=== PATIENT | female | born 1945 | race Caucasian/White ===

== ENCOUNTER → 2016-04-05 | Outpatient (CLI) | payer BC ==
[~2016-04-05] MED LIST: /ALEN70TA OR; BLOOD PRESSURE MED OR; DOXY100T OR; NICO14DI3 TD; PRED10TA2 OR; PRED20TA OR; SIMV40TA2 OR; TESS100C OR
--- NOTE | 2016-04-05 11:32 | REP ---
Clinical: Pain. Technique: Internal rotation, external rotation, and Y view. Findings: Age related osteopenia and mild arthritic degenerative changes are appreciated including spurring at the acromioclavicular joint with small adjacent periarticular loose body as well as subtle blunted appearance to the glenoid rim. Subacromial space is normal. No further periarticular calcifications are identified. No evidence for acute or healed fracture/dislocation. Impression: Age-related osteopenia and mild arthritic degenerative changes. Signed by Khoi Jennings MD 04/05/2016 11:23 A
== END ==
LOC: M WUC 11:03
PROVIDERS: ATTEND Nurse Practitioner Family
DX: M85.812 Other specified disorders of bone density and structure, left shoulder (principal); M19.012 Primary osteoarthritis, left shoulder

== ENCOUNTER → 2016-09-04 | Outpatient (REF) | payer BC | LOC: M LAB REF 16:29 | PROVIDERS: ATTEND Physician Assistant | DX: N39.0 Urinary tract infection, site not specified (principal) ==

== ENCOUNTER 2016-09-11 09:37 | Inpatient (IN) | payer MEDICARE, BC ==
[~2016-09-11] VITALS: Ht 165.1 cm; Wt 50.2 kg
[2016-09-11] MEDS ORDERED: LISIPOW (09:56)
[2016-09-11] MEDS ORDERED: CIPR250T3 PO (09:56)
[2016-09-11] MEDS ORDERED: PHEN1TAB80 PO (09:56)
[2016-09-11] MEDS ORDERED: ALEN70TA39 (09:56)
[2016-09-11] MEDS ORDERED: ATOR1TAB18 PO (09:56)
[2016-09-11] MEDS ORDERED: ONDANSETRON 4MG/2ML VIAL (J2405) IV ONE (11:45)
[2016-09-11] MEDS ORDERED: KETOROLAC 30 MG/ML VIAL (J1885) IV ONE (11:45)
[2016-09-11 12:08] LABS: BASO % 0.1 % (0.0-1.0); EOS # 0.2 K/mm3 (0.0-0.50); LARGE UNSTAINED CELL # 0.1 K/mm3 (0.0-0.4); LARGE UNSTAINED CELL % 0.6 % (0.0-4.0); LYMPH # 0.9 K/mm3 (1.5-4.5); MEAN CORPUSCULAR HGB CONC 34.2 g/dl (32.0-36.5); MEAN CORPUSCULAR VOLUME 96.5 fl (80.0-96.0); MONO % 6.1 % (0.0-5.0); NEUTROPHILS # 13.9 K/mm3 (1.8-7.7); NEUTROPHILS % 87.2 % (36.0-66.0); PLATELET COUNT, AUTOMATED 231 k/mm3 (150-450); RED CELL DISTRIBUTION WIDTH 13.5 % (11.5-14.5)
[2016-09-11] MEDS ORDERED: GASTROGRAFIN SOLUTION 30ML (Q9963) PO ONE ×2 (12:15→12:45)
[2016-09-11 12:25] LABS: AMYLASE 53 U/L (25-115); ANION GAP 9 MEQ/L (8-16); BLOOD UREA NITROGEN 20 MG/DL (7-18); CALCIUM LEVEL 9.3 MG/DL (8.8-10.2); CARBON DIOXIDE LEVEL 30 MEQ/L (21-32); CHLORIDE LEVEL 97 MEQ/L (98-107); CREATININE FOR GFR 0.94 MG/DL (0.55-1.02); GLOMERULAR FILTRATION RATE > 60.0 (>39); GLUCOSE, FASTING 156 MG/DL (83-110); POTASSIUM SERUM 3.7 MEQ/L (3.5-5.1); SODIUM LEVEL 136 MEQ/L (136-145)
[2016-09-11 12:42] LABS: ERYTHROCYTE SEDIMENTATION RATE 4 mm/hr (0-30)
[2016-09-11 13:12] LABS: ALBUMIN 4.1 GM/DL (3.2-5.2); ALBUMIN/GLOBULIN RATIO 1.28 (1.00-1.93); ALKALINE PHOSPHATASE 61 U/L (45-117); ALT/SGPT 32 U/L (12-78); AST/SGOT 29 U/L (15-37); BILIRUBIN,DIRECT 0.1 MG/DL (0.0-0.2); BILIRUBIN,TOTAL 0.6 MG/DL (0.2-1.0); TOTAL PROTEIN 7.3 GM/DL (6.4-8.2)
[2016-09-11] MEDS ORDERED: ISOVUE-370 76% 100ML VIAL (Q9967) As Ordered ONE (13:33)
--- NOTE | 2016-09-11 14:05 | REP ---
Fax [facility] CT abdomen and pelvis with IV and oral contrast: There are no comparison studies. There is a right inguinal hernia containing loops of small bowel. The small bowel is distended and there are multiple small bowel air-fluid levels. Findings are compatible with small bowel obstruction. There is no colonic distension or obstruction. There is no ascites. There is no pneumoperitoneum. The visualized lung martínez demonstrate small bulla scattered throughout the visible lung martínez. The hepatic parenchyma, gallbladder, pancreas and spleen are unremarkable. The adrenals, kidneys and abdominal aorta are unremarkable except for calcified atheroma. Pelvis: The uterus, adnexa and bladder are unremarkable. There is a trace of ascites. Pelvic bowel loops demonstrate dilated small bowel multiple air-fluid levels in nondilated colon. Impression: There is a right inguinal hernia containing small bowel loops. There is small bowel obstruction. There is a trace of ascites. There is no pneumoperitoneum. There are small bulla scattered throughout the visualized lung martínez. Signed by Low Coulter MD 09/11/2016 01:56 P
[2016-09-11] MEDS ORDERED: FOSA70TA PO (14:19)
[2016-09-11] MEDS ORDERED: LISI10TA2 PO (14:19)
[2016-09-11] MEDS ORDERED: ARTI99.0 OU (14:31)
[2016-09-11] MEDS ORDERED: fentaNYL 100 MCG/2 ML INJECTION (J3010) As Ordered ONE ×2 (14:50→15:49)
[2016-09-11] MEDS ORDERED: MIDAZOLAM INJ 2 MG/2 ML VIAL (J2250) As Ordered ONE (14:50)
[2016-09-11] MEDS ORDERED: BUPIVACAINE/EPIN 0.25% 30 ML VIAL As Ordered ONE (15:29)
[2016-09-11] MEDS ORDERED: ONDANSETRON 4MG/2ML VIAL (J2405) As Ordered ONE (15:34)
[2016-09-11] MEDS ORDERED: ROCURONIUM BROMIDE 50 MG/5 ML VIAL As Ordered ONE (15:34)
[2016-09-11] MEDS ORDERED: SUCCINYLCHOLINE 100 MG/5 ML SYRINGE (J0330) As Ordered ONE (15:34)
[2016-09-11] MEDS ORDERED: PROPOFOL 200 MG/20 ML VIAL As Ordered ONE (15:34)
[2016-09-11] MEDS ORDERED: LIDOCAINE 2% INJ 100 MG/5 ML SDV (FOR ANES.) As Ordered ONE (15:34)
[2016-09-11] MEDS ORDERED: dexameTHASONE 4 MG/ML 1ML VIAL (J1100) As Ordered ONE (15:34)
[2016-09-11] MEDS ORDERED: PHENYLephrine HCL 500 MCG/5 ML (100MCG/ML) SYRINGE (J2370) As Ordered ONE ×2 (15:40→16:33)
[2016-09-11] MEDS ORDERED: ERTAPENEM 1 GM INJ (INVanz) (J1335) As Ordered ONE (16:08)
[2016-09-11] MEDS ORDERED: NEOSTIGMINE 1MG/ML 5 ML SYRINGE (J2710) As Ordered ONE (16:51)
[2016-09-11] MEDS ORDERED: GLYCOPYRROLATE INJ 0.2 MG/ML 2 ML VIAL As Ordered ONE (16:51)
[2016-09-11] MEDS: LR 1,000 ML IV SCH (17:28)
[2016-09-11] MEDS ORDERED: ONDANSETRON 4MG/2ML VIAL (J2405) IV PRN ×2 (17:30→17:45)
[2016-09-11] MEDS ORDERED: MORPHINE 2 MG/ML 1ML SYRINGE IV PRN (17:30)
[2016-09-11] MEDS ORDERED: ACETAMINOPHEN TAB 650MG DOSE (2X325MG) PO PRN (17:30)
[2016-09-11] MEDS ORDERED: LR 1,000 ML IV SCH (17:45)
[2016-09-11] MEDS ORDERED: fentaNYL 100 MCG/2 ML INJECTION (J3010) IV PRN (17:45)
[2016-09-11] MEDS ORDERED: PERCOCET 5MG/325MG TAB PO PRN (17:45)
[2016-09-11] MEDS ORDERED: HYDROmorphone HCL 1 MG/ML SYRINGE (J1170) IV PRN (17:45)
[2016-09-11] MEDS ORDERED: KETOROLAC 30 MG/ML VIAL (J1885) IV PRN (18:00)
[2016-09-11 18:15] VITALS: BP 143/64
[2016-09-11] MEDS: ATORVASTATIN 20 MG TAB PO SCH (21:01)
[2016-09-11] MEDS: HEPARIN SOD (PORCINE) 5000 UNITS/ML VIAL SC SCH (21:02)
[2016-09-11] MEDS: SENOKOT S TAB PO SCH (21:02)
[2016-09-11] MEDS: LISINOPRIL 10 MG TAB PO SCH (21:02)
[2016-09-11 22:00] VITALS: BP 131/63
[2016-09-12] MEDS: LR 1,000 ML IV SCH ×3 (03:24→17:28)
[2016-09-12] MEDS: NORCO, ANEXSIA 5/325MG TABLET (HYDROcodone/ACETAMINOPHEN) PO PRN ×2 (03:25→21:19)
[2016-09-12] MEDS: HEPARIN SOD (PORCINE) 5000 UNITS/ML VIAL SC SCH ×3 (05:50→21:11)
[2016-09-12 06:00] VITALS: BP 106/59
[2016-09-12 06:56] LABS: MEAN CORPUSCULAR HEMOGLOBIN 32.8 pg (27.0-33.0); MEAN CORPUSCULAR VOLUME 96.5 fl (80.0-96.0); RED CELL DISTRIBUTION WIDTH 13.5 % (11.5-14.5); WHITE BLOOD COUNT 12.9 K/mm3 (4.0-10.0)
[2016-09-12 07:15] LABS: ANION GAP 5 MEQ/L (8-16); BLOOD UREA NITROGEN 15 MG/DL (7-18); CALCIUM LEVEL 7.8 MG/DL (8.8-10.2); CARBON DIOXIDE LEVEL 31 MEQ/L (21-32); CHLORIDE LEVEL 101 MEQ/L (98-107); CREATININE FOR GFR 0.72 MG/DL (0.55-1.02); GLOMERULAR FILTRATION RATE > 60.0 (>39); GLUCOSE, FASTING 135 MG/DL (83-110); MAGNESIUM LEVEL 2.2 MG/DL (1.8-2.4); POTASSIUM SERUM 3.6 MEQ/L (3.5-5.1); SODIUM LEVEL 137 MEQ/L (136-145)
[2016-09-12] MEDS: PANTOPRAZOLE 40MG INJ (PROTONIX) (C9113) IV SCH (08:23)
[2016-09-12] MEDS: SENOKOT S TAB PO SCH ×2 (08:23→21:11)
[2016-09-12] MEDS: hydroCHLOROthiazide 12.5 MG CAPSULE PO SCH (08:24)
[2016-09-12] MEDS: POLYVINYL ALCOHOL OPHTH SOLN 15 ML(LIQUITEARS) OU SCH (08:24)
--- NOTE | 2016-09-12 09:17 | ECGEPIP ---
Stationary ECG Study [facility] - ED Test Date: 2016-09-11 Pat Name: COSME JOSHUA Department: Room: - Gender: F [employer] Visitor: : 1945 Requested By: KAREN Miller PA-C Order Number: [id number] Reading MD: Mariam Dominguez Measurements Intervals [place] Rate: 79 P: 76 MD: 154 QRS: -1 QRSD: 97 T: 17 QT: 363 QTc: 416 Interpretive Statements SINUS RHYTHM NSTTW ABNORMALITY LOW VOLTAGE LIMB SIMILAR 11/17/11 Electronically Signed On 09-12-2016 9:17:05 EDT by Mariam Dominguez
[2016-09-12 10:00] VITALS: BP 104/50
[2016-09-12 14:00] VITALS: BP 103/57
[2016-09-12] MEDS ORDERED: ERTAPENEM SODIUM 1 GM in NS MINI-BAG PLUS 50 ML IV SCH (16:00)
--- NOTE | 2016-09-12 17:34 | HPE ---
DATE OF ADMISSION: 09/11/2016 CHIEF COMPLAINT: Right groin pain. HISTORY OF PRESENT ILLNESS: The patient is a 71-year-old female who has had a history of right groin cyst since last January. She had imaging done outpatient that said it was likely a cyst near her hip and she followed up with Dr. Calix in the office. On exam he thought that she had a femoral hernia. However, since she was not having any pain or problems from it and she did not want to have surgery unless it was extremely necessary, this was all avoided. However, over the past 6 months, this cyst on her right groin has been getting larger in size. Starting this past Sunday, she had a lot of nausea and vomiting as well as a very large increase in the bulge in her right groin. It was very hard and painful and would not go down. The pain in her abdomen started to spread up towards her epigastric area by Sunday and without having any improvement by yesterday she came into emergency room for evaluation. In the ER she had a very large, hard nonreducible lump in the right groin. CT scan confirmed that there was an inguinal hernia with some bowel within it. Therefore, I was called to evaluate. On examination, she had ice on. She was in Trendelenburg position. The right groin was very hard. Multiple attempts at reduction were made without any success. The recommendation was then to take her to the operating room for repair of this incarcerated, possibly strangulated hernia. She had had nausea and vomiting at home. No flatus or bowel movement since Sunday. She has not really been able to eat anything since Sunday as well. She was started on IV fluids, antibiotics and brought up to the operating froom. PAST SURGICAL HISTORY: tonsillectomy. PAST MEDICAL HISTORY: Chronic obstructive pulmonary disease (COPD), hypertension, hyperlipidemia. ALLERGIES: AMOXICILLIN, AZITHROMYCIN, CLAVULANIC ACID, ERYTHROMYCIN, NITROFURANTOIN. HOME MEDICATIONS: Please see medical record. SOCIAL HISTORY: Denies drug, alcohol, or tobacco abuse. FAMILY HISTORY: Noncontributory. REVIEW OF SYSTEMS: Pertinent positive and negatives stated in the HPI. PHYSICAL EXAMINATION: General: Alert and oriented times three. No acute distress. Vitals: Temperature 96, pulse 70, respirations 18, blood pressure 130/61, pulse oximetry 97% on room air. HEENT: Pupils equal, round, react to light and accommodation. Heart: S1-S2, regular rate and rhythm. Lungs: Clear to auscultation bilaterally. Abdomen: Soft, slightly distended diffusely. There is a very large nonreducible hernia on the right groin. Due to the size it is difficult to determine whether this is femoral or inguinal on physical exam. Extremities: No clubbing, cyanosis or edema. LABORATORY DATA: White count 16, hemoglobin 17.3, platelets 231, lactic acid 2.1, potassium 3.7. IMAGING STUDIES: CT abdomen and pelvis shows a right inguinal hernia containing small bowel loops. This is resulting in a small bowel obstruction. No signs of pneumoperitoneum and there is trace amount of ascites. ASSESSMENT/PLAN: The patient is a 71-year-old female with an incarcerated, possibly strangulated right inguinal versus femoral hernia. Recommendation to proceed with urgent surgery for reduction of the hernia. Risks and benefits of the procedure not limited to but including bleeding, infection, hernia recurrence, damage to surrounding structures, need for further surgery were discussed in detail with the patient. Informed consent was obtained and the procedure was planned. Postoperatively depending on what we find, she will be likely kept overnight with discharge plan depending on what is found during surgery.
[2016-09-12 21:00] VITALS: BP 103/54
[2016-09-12] MEDS: LISINOPRIL 10 MG TAB PO SCH (21:00)
[2016-09-12] MEDS: ATORVASTATIN 20 MG TAB PO SCH (21:12)
[2016-09-12 22:00] VITALS: BP 103/54
[2016-09-13 02:00] VITALS: BP 109/61
[2016-09-13] MEDS: HEPARIN SOD (PORCINE) 5000 UNITS/ML VIAL SC SCH ×2 (05:50→13:53)
[2016-09-13 06:00] VITALS: BP 119/56
--- NOTE | 2016-09-13 06:55 | RO ---
DATE OF PROCEDURE: 09/11/2016 PREOPERATIVE DIAGNOSIS: Incarcerated right inguinal hernia. POSTOPERATIVE DIAGNOSES: Strangulated right femoral hernia with gangrenous bowel. PROCEDURE: Right strangulated femoral hernia repair with small bowel resection and primary anastomosis. SURGEON: Dr. Low Penny. MICROFILMER: None. ANESTHESIA: General. ESTIMATED BLOOD LOSS: 10. COMPLICATIONS: None. INDICATIONS FOR PROCEDURE: The patient is 71-year-old female who presents with right lower quadrant pain and increased bulge starting on Sunday. In the ER, she was found to have a nonreducible right inguinal hernia. She had a CT scan done which also showed loops of small bowel inside of a right inguinal hernia. On exam, this was nonreducible. Therefore I recommended surgery for incarcerated and possibly even strangulated hernia. Risks and benefits of procedure not limited to but including bleeding, infection, hernia recurrence, damage to surrounding structures, need for further surgery were discussed in detail with the patient. Informed consent was obtained and procedure was scheduled urgently. PROCEDURE: The patient was brought back to operating room six. After sufficient sedation, the abdomen was sterilely prepped and draped. A Sandoval catheter was placed. Next time-out was done to confirm proper patient and proper procedure. Following that, a 5 cm incision was made in the right groin overlying the right inguinal hernia. The incision was carried down to the level of the hernia sac. The hernia sac was incised and there was necrotic bowel that was identified. The bowel was grabbed with a Paia to prevent it from falling back inside the peritoneum. The incision was then extended for about 2 cm on each side. The entire hernia sac was then completely dissected free circumferentially. It was then opened up down to the level of the neck of the hernia which was carefully widened superiorly. After releasing the pressure of the hernia neck, I was able to pull more of the small intestine out through the defect until healthy bowel was reached. #3-0 silk stay suture was placed to create a [id number] anastomosis. Two enterotomies were then made and HERMINIA 100 stapler was used to create a [id number] anastomosis. Once that was completed, two mesentery windows were created in the small bowel mesentery. They were connected [id number] using a LigaSure. Once this was completed, another HERMINIA 100 stapler was used to create to the staple across and finish the anastomosis. Once this was completed, interrupted #3-0 silk sutures were used in Lembert fashion to oversew the anastomosis. Once this was completed, an #0 Vicryl running suture was used to close up the mesenteric defect. Once this was completed, the small bowel was placed back inside the abdomen. The hernia sac was ligated with #0 Prolene suture and amputated off. This was placed back inside of the abdomen. Hernia defect was then closed with running #0 Vicryl suture in two-layer repair followed by two layers of running #3-0 Chromic suture, another layer of interrupted #3-0 Vicryl sutures and skin niranjan. Once this was all completed, the area was cleaned and dried, 4x4 and tape were applied thus ending procedure.
[2016-09-13 07:01] LABS: MEAN CORPUSCULAR HEMOGLOBIN 32.6 pg (27.0-33.0); MEAN CORPUSCULAR HGB CONC 33.1 g/dl (32.0-36.5); MEAN CORPUSCULAR VOLUME 98.3 fl (80.0-96.0); RED CELL DISTRIBUTION WIDTH 13.1 % (11.5-14.5); WHITE BLOOD COUNT 9.8 K/mm3 (4.0-10.0)
[2016-09-13 07:07] LABS: ANION GAP 6 MEQ/L (8-16); BLOOD UREA NITROGEN 10 MG/DL (7-18); CALCIUM LEVEL 8.6 MG/DL (8.8-10.2); CARBON DIOXIDE LEVEL 32 MEQ/L (21-32); CHLORIDE LEVEL 100 MEQ/L (98-107); CREATININE FOR GFR 0.76 MG/DL (0.55-1.02); GLOMERULAR FILTRATION RATE > 60.0 (>39); GLUCOSE, FASTING 99 MG/DL (83-110); MAGNESIUM LEVEL 2.3 MG/DL (1.8-2.4); POTASSIUM SERUM 3.3 MEQ/L (3.5-5.1); SODIUM LEVEL 138 MEQ/L (136-145)
[2016-09-13] MEDS: PANTOPRAZOLE 40MG INJ (PROTONIX) (C9113) IV SCH (08:47)
[2016-09-13] MEDS: hydroCHLOROthiazide 12.5 MG CAPSULE PO SCH (08:48)
[2016-09-13] MEDS: SENOKOT S TAB PO SCH (08:48)
[2016-09-13] MEDS: POLYVINYL ALCOHOL OPHTH SOLN 15 ML(LIQUITEARS) OU SCH (08:48)
[2016-09-13] MEDS ORDERED: POTASSIUM CHLORIDE 10 MEQ SR TABLET PO ONE (09:15)
[2016-09-13] MEDS ORDERED: SENN1TAB2 PO (13:28)
[2016-09-13] MEDS ORDERED: NORCOTAB PO (13:28)
--- NOTE | 2016-09-16 03:58 | DSES ---
DATE OF ADMISSION: 09/11/2016 DATE OF DISCHARGE: 09/13/2016 ADMISSION DIAGNOSIS: Incarcerated right inguinal hernia. DISCHARGE DIAGNOSIS: Strangulated right femoral hernia with necrotic bowel. HOSPITAL COURSE: The patient is a 71-year-old female who presented to the emergency room on the . She was found to have a nonreducible right inguinal hernia, had loops of small bowel within this confirmed on CT scan. I was called to see her in the emergency room. I was unable to reduce this at the bedside. Due to the fact that this was not reducible and had small bowel within it, recommendation was to proceed with open repair. She was taken to the operating room urgently, had a right inguinal exploration and was found to have necrotic gangrenous bowel within this hernia sac. Hernia sac was opened. Bowel was resected. She had primary small bowel resection with anastomosis with repair of the right femoral hernia. Postoperatively, she did well. No problems with nausea or vomiting. She was tolerating diet. She was passing gas, ambulating the halls without any difficulty and labs were normal. We slowly advanced her diet. Once she had a bowel movement on the morning of 09/13/2016, she was discharged home. Plan is to followup with me in the office in 2 weeks. No lifting or pushing more than 20 pounds. No soaking in the tub for more than 5 days and will followup with me in the office.
[2016-09-16] MEDS ORDERED: ALENDRONATE 70 MG TABLET (FOSAMAX) PO SCH (07:00)
== END 2016-09-13 14:45 | disposition home or self-care (01) | DRG 331 ==
LOC: M ED 11:02 → M SDC 14:57 → EDBEDREQ 16:40 → M SDC 17:34 → M MS5PR 17:35 → M SDC 09-12 07:17 → M MS5PR 09-12 07:17
PROVIDERS: ADMIT Surgery; ATTEND Surgery
PROC: 0YQ70ZZ Repair Right Femoral Region, Open Approach (ICD-10-PCS; 2016-09-11)
PROC: 0DB80ZZ Excision of Small Intestine, Open Approach (ICD-10-PCS; principal; 2016-09-11 14:52)
DX: K41.40 Unilateral femoral hernia, with gangrene, not specified as recurrent (principal); R63.6 Underweight; J44.9 Chronic obstructive pulmonary disease, unspecified; I10 Essential (primary) hypertension; E78.5 Hyperlipidemia, unspecified; Z88.0 Allergy status to penicillin; Z88.1 Allergy status to other antibiotic agents; Z88.8 Allergy status to other drugs, medicaments and biological substances

== ENCOUNTER → 2016-10-04 | Outpatient (CLI) | payer MEDICARE, BC ==
[~2016-10-04] MED LIST changes: +ALEN70TA39; +ARTI99.0 OU; +ATOR80TA59 PO; +CIPR250T3 PO; +FOSA70TA PO; +LISI10TA2 PO; +LISIPOW; +NORCOTAB PO; +PHEN-500 PO; +SENN1TAB2 PO
[2016-10-04 20:18] LABS: ALBUMIN 3.7 GM/DL (3.2-5.2); ALBUMIN/GLOBULIN RATIO 1.32 (1.00-1.93); ALKALINE PHOSPHATASE 57 U/L (45-117); ALT/SGPT 29 U/L (12-78); ANION GAP 7 MEQ/L (8-16); AST/SGOT 19 U/L (15-37); BILIRUBIN,TOTAL 0.3 MG/DL (0.2-1.0); BLOOD UREA NITROGEN 18 MG/DL (7-18); CALCIUM LEVEL 8.9 MG/DL (8.8-10.2); CARBON DIOXIDE LEVEL 28 MEQ/L (21-32); CHLORIDE LEVEL 104 MEQ/L (98-107); CHOLESTEROL LEVEL 171 MG/DL (<200); CREATININE FOR GFR 0.91 MG/DL (0.55-1.02); GLOMERULAR FILTRATION RATE > 60.0 (>39); GLUCOSE, FASTING 93 MG/DL (83-110); POTASSIUM SERUM 4.4 MEQ/L (3.5-5.1); SODIUM LEVEL 139 MEQ/L (136-145); TOTAL PROTEIN 6.5 GM/DL (6.4-8.2); TRIGLYCERIDES LEVEL 70 MG/DL (<150)
[2016-10-04 20:24] LABS: BASO % 0.7 % (0.0-1.0); EOS # 0.2 K/mm3 (0.0-0.50); EOS % 2.6 % (0.0-3.0); LARGE UNSTAINED CELL # 0.1 K/mm3 (0.0-0.4); LARGE UNSTAINED CELL % 1.6 % (0.0-4.0); LYMPH # 1.8 K/mm3 (1.5-4.5); LYMPH % 25.2 % (24.0-44.0); MEAN CORPUSCULAR HEMOGLOBIN 32.6 pg (27.0-33.0); MEAN CORPUSCULAR HGB CONC 33.6 g/dl (32.0-36.5); MONO # 0.4 K/mm3 (0.0-0.8); MONO % 5.5 % (0.0-5.0); NEUTROPHILS # 4.7 K/mm3 (1.8-7.7); NEUTROPHILS % 64.4 % (36.0-66.0); PLATELET COUNT, AUTOMATED 316 k/mm3 (150-450); WHITE BLOOD COUNT 7.3 K/mm3 (4.0-10.0)
== END ==
LOC: M WUC 14:05
PROVIDERS: ATTEND Nurse Practitioner Family
DX: I10 Essential (primary) hypertension (principal); R73.01 Impaired fasting glucose

== ENCOUNTER → 2017-03-23 | Outpatient (CLI) | payer BC | LOC: M RAD 12:23 | DX: K41.40 Unilateral femoral hernia, with gangrene, not specified as recurrent (principal) | CPT/HCPCS: 76857 ==

== ENCOUNTER → 2017-11-02 | Outpatient (REF) | payer BC | LOC: M LAB REF 10:25 | DX: R30.0 Dysuria (principal) | CPT/HCPCS: 87186 ==

== ENCOUNTER → 2017-11-07 | Outpatient (REF) | payer BC ==
[2017-11-07 18:57] LABS: APPEARANCE, URINE CLEAR (CLEAR); BACTERIA, URINE AUTO 1+ (NEGATIVE); BILIRUBIN, URINE AUTO NEGATIVE (NEGATIVE); BLOOD, URINE BLOOD NEGATIVE (NEGATIVE); COLOR, URINE YELLOW (YELLOW); GLUCOSE, URINE (UA) AUTO NEGATIVE (NEGATIVE); KETONE, URINE AUTO NEGATIVE (NEGATIVE); LEUKOCYTE ESTERASE, URINE AUTO NEGATIVE (NEGATIVE); NITRITE, URINE AUTO NEGATIVE (NEGATIVE); PROTEIN, URINE AUTO NEGATIVE (NEGATIVE); RBC, URINE AUTO 1 /HPF (0-3); SPECIFIC GRAVITY URINE AUTO 1.004 (1.002-1.035); SQUAMOUS EPITHELIAL CELL UR AU 0 /HPF (0-6); UROBILINOGEN, URINE AUTO 0.2 mg/dL (0.0-2.0); WBC, URINE AUTO 0 /HPF (0-3)
== END ==
LOC: M SFHCPLAZ 17:11
DX: R30.0 Dysuria (principal)
CPT/HCPCS: 81001

== ENCOUNTER → 2018-08-14 | Outpatient (CLI) | payer BC ==
[~2018-08-14] MED LIST changes: -ALEN70TA39; +ALEN70TA74; +HYDR-3715 PO; -NORCOTAB PO; -SENN1TAB2 PO; +SENN1TAB40 PO
[2018-08-14 17:18] LABS: ALBUMIN 3.8 GM/DL (3.2-5.2); BILIRUBIN,TOTAL 0.7 MG/DL (0.2-1.0); CALCIUM LEVEL 8.7 MG/DL (8.8-10.2); CHOLESTEROL RISK RATIO 1.492 (<5); CREATININE FOR GFR 1.1 MG/DL (0.55-1.30); POTASSIUM SERUM 4.3 MEQ/L (3.5-5.1); TOTAL PROTEIN 6.9 GM/DL (6.4-8.2)
[2018-08-14 17:25] LABS: TOTAL 25(OH) VITAMIN D 37.4 NG/ML (30.0-100.0)
[2018-08-14 17:55] LABS: MALB URINE SIEMENS 15.6 MG/L; MAU/CREAT RATIO 7.7 MCG/MG (0.0-30.0)
[2018-08-14 18:40] LABS: HEMOGLOBIN A1c 5.7 %
== END ==
LOC: M WUC 10:47
PROVIDERS: ATTEND Family Medicine
DX: E55.9 Vitamin D deficiency, unspecified (principal); I10 Essential (primary) hypertension; E78.00 Pure hypercholesterolemia, unspecified; R73.01 Impaired fasting glucose

== ENCOUNTER → 2018-11-01 | Outpatient (CLI) | payer BC ==
[~2018-11-01] MED LIST changes: -ARTI99.0 OU; +ARTIDRO2 OU; +LISI10TA15 PO; -LISI10TA2 PO; +PRED10TA2 PO; +ROBA750T4 PO; +SENN-53 PO; -SENN1TAB40 PO
--- NOTE | 2018-11-01 14:33 | REP ---
LUMBAR SPINE, SEVEN VIEWS: HISTORY: Sciatica. There is no acute fracture or subluxation. The lumbar intervertebral discs are decreased in height consistent with disc degeneration. Osteophytes are present on L1 and 2. There is narrowing of the L4-5 and L5-S1 facet joints. There is scoliosis convex to the left. IMPRESSION: Degenerative change as described above. Electronically Signed by Rafiq Taveras MD 11/01/2018 02:42 P
--- NOTE | 2018-11-01 14:37 | REP ---
SACRUM AND COCCYX, THREE VIEWS: HISTORY: Sciatica. There is no acute fracture or subluxation. The L5-S1 intervertebral disc is decreased in height consistent with disc degeneration. IMPRESSION: Degenerative change as described above. Electronically Signed by Rafiq Taveras MD 11/01/2018 02:42 P
== END ==
LOC: M WUC 11:45
PROVIDERS: ATTEND Family Medicine
DX: M54.30 Sciatica, unspecified side (principal)

== ENCOUNTER → 2018-11-12 | Outpatient (REF) | payer BC ==
[~2018-11-12] MED LIST changes: -PRED10TA2 PO; -ROBA750T4 PO; -SENN-53 PO; +SENN1TAB40 PO
== END ==
LOC: M LAB REF 13:00
PROVIDERS: ATTEND Physician Assistant
DX: R30.0 Dysuria (principal)

== ENCOUNTER → 2018-11-13 | Outpatient (CLI) | payer BC | LOC: M WHC 11:15 | PROVIDERS: ATTEND Family Medicine | DX: M81.8 Other osteoporosis without current pathological fracture (principal) ==

== ENCOUNTER → 2018-11-18 | Outpatient (REF) | payer BC ==
[~2018-11-18] MED LIST changes: +PRED10TA2 PO; +ROBA750T4 PO; +SENN-53 PO; -SENN1TAB40 PO
== END ==
LOC: M SFHCPLAZ 16:44
PROVIDERS: ATTEND Family Medicine
DX: N30.00 Acute cystitis without hematuria (principal)

== ENCOUNTER 2019-02-20 09:14 | Emergency (ER) | payer BC ==
[~2019-02-20] VITALS: Ht 165.1 cm; Wt 56.8 kg
[2019-02-20 09:14] VITALS: BP 157/68
[~2019-02-20 09:14] MED LIST changes: -PRED10TA2 PO; -ROBA750T4 PO
[2019-02-20] MEDS ORDERED: PRED10TA2 PO (09:54)
[2019-02-20] MEDS ORDERED: ROBA750T4 PO (09:54)
[2019-02-20] MEDS ORDERED: predniSONE 20 MG TAB PO ONE (10:00)
[2019-02-20] MEDS ORDERED: METHOCARBAMOL 750 MG TAB PO ONE (10:00)
== END 2019-02-20 10:02 | disposition home or self-care (01) ==
LOC: M ED 09:14
DX: S39.012A Strain of muscle, fascia and tendon of lower back, initial encounter (principal); X50.1XXA Overexertion from prolonged static or awkward postures, initial encounter; I10 Essential (primary) hypertension; J44.9 Chronic obstructive pulmonary disease, unspecified; Z88.1 Allergy status to other antibiotic agents; Z88.8 Allergy status to other drugs, medicaments and biological substances

== ENCOUNTER → 2020-06-16 | Outpatient (CLI) | payer BC ==
[~2020-06-16] MED LIST changes: -ALEN70TA74; +ALEN70TA82; -ARTIDRO2 OU; +POLYOPD OU; +PRED10TA2 PO; +ROBA750T4 PO
[2020-06-16 12:30] LABS: EOS # 0.2 10^3/uL (0.0-0.5); EOS % 5.2 % (0.0-3.0); HEMATOCRIT 43.4 % (36.0-47.0); HEMOGLOBIN 14.2 g/dl (12.0-15.5); LYMPH # 1.1 10^3/uL (1.5-5.0); LYMPH % 28.9 % (24.0-44.0); MEAN CORPUSCULAR HEMOGLOBIN 31.4 pg (27.0-33.0); MEAN CORPUSCULAR HGB CONC 32.7 g/dl (32.0-36.5); MONO # 0.4 10^3/uL (0.0-0.8); MONO % 10.9 % (2.0-8.0); NEUTROPHILS # 2.1 10^3/uL (1.5-8.5); NEUTROPHILS % 53.5 % (36.0-66.0); PLATELET COUNT, AUTOMATED 252 10^3/uL (150-450); RED BLOOD COUNT 4.52 10^6/uL (4.00-5.40); WHITE BLOOD COUNT 3.9 10^3/uL (4.0-10.0)
[2020-06-16 12:46] LABS: HEMOGLOBIN A1c 5.3 %
[2020-06-16 13:11] LABS: ALT/SGPT 40 U/L (12-78); BILIRUBIN,TOTAL 0.7 MG/DL (0.2-1.0); BLOOD UREA NITROGEN 16 MG/DL (7-18); CALCIUM LEVEL 9.5 MG/DL (8.8-10.2); CARBON DIOXIDE LEVEL 28 MEQ/L (21-32); CHLORIDE LEVEL 103 MEQ/L (98-107); CHOLESTEROL LEVEL 234 MG/DL (<200); CHOLESTEROL RISK RATIO 1.683 (<5); CREATININE FOR GFR 0.92 MG/DL (0.55-1.30); FREE T4 0.94 NG/DL (0.76-1.46); GLOMERULAR FILTRATION RATE > 60.0 (>39); GLUCOSE, FASTING 147 MG/DL (70-100); HDL CHOLESTEROL 139 MG/DL (>40); LDL CHOLESTEROL 85 MG/DL (<100); NON-HDL-C 95 MG/DL; POTASSIUM SERUM 4.2 MEQ/L (3.5-5.1); SODIUM LEVEL 139 MEQ/L (136-145); T UPTAKE 41 % (30-39); THYROID STIMULATING HORMONE 0.959 uIU/ML (0.358-3.740); THYROXINE (T4) 7.2 UG/DL (4.5-12.0); TRIGLYCERIDES LEVEL 52 MG/DL (<150)
== END ==
LOC: M WUC 08:36
PROVIDERS: ATTEND Psychiatry & Neurology Neurology
DX: E78.5 Hyperlipidemia, unspecified (principal); E07.9 Disorder of thyroid, unspecified

== ENCOUNTER → 2020-12-30 | Outpatient (CLI) | payer BC ==
[2020-12-30 17:10] LABS: HEMOGLOBIN A1c 5.3 %
[2020-12-30 18:02] LABS: ALT/SGPT 38 U/L (12-78); BILIRUBIN,TOTAL 0.6 MG/DL (0.2-1.0); BLOOD UREA NITROGEN 14 MG/DL (7-18); CALCIUM LEVEL 9.7 MG/DL (8.8-10.2); CARBON DIOXIDE LEVEL 27 MEQ/L (21-32); CHLORIDE LEVEL 101 MEQ/L (98-107); CHOLESTEROL LEVEL 208 MG/DL (<200); CREATININE FOR GFR 0.78 MG/DL (0.55-1.30); GLOMERULAR FILTRATION RATE > 60.0 (>39); GLUCOSE, FASTING 90 MG/DL (70-100); HDL CHOLESTEROL 126 MG/DL (>40); LDL CHOLESTEROL 72 MG/DL (<100); NON-HDL-C 82 MG/DL; POTASSIUM SERUM 4.6 MEQ/L (3.5-5.1); SODIUM LEVEL 136 MEQ/L (136-145); TOTAL PROTEIN 6.9 GM/DL (6.4-8.2); TRIGLYCERIDES LEVEL 48 MG/DL (<150); URIC ACID 5.2 MG/DL (2.6-6.0)
[2020-12-30 18:08] LABS: TOTAL 25(OH) VITAMIN D 53.7 NG/ML (30.0-100.0)
[2020-12-30 18:09] LABS: CREATININE, URINE 30.3 MG/DL; MALB URINE SIEMENS < 5.0 MG/L; MAU/CREAT RATIO 16.5 MCG/MG (0.0-30.0)
== END ==
LOC: M WUC 12:04
PROVIDERS: ATTEND Family Medicine
DX: I65.22 Occlusion and stenosis of left carotid artery (principal); E78.00 Pure hypercholesterolemia, unspecified; I10 Essential (primary) hypertension; R73.01 Impaired fasting glucose; E55.9 Vitamin D deficiency, unspecified

== ENCOUNTER → 2022-06-20 | Outpatient (CLI) | payer BC ==
[~2022-06-20] MED LIST changes: +ALEN70TA87 PO; -FOSA70TA PO; -LISI10TA15 PO; +LISI10TA24 PO
[2022-06-20 17:11] LABS: ALBUMIN 4.2 G/DL (3.2-5.2); ALKALINE PHOSPHATASE 50 U/L (46-116); ALT/SGPT 29 U/L (7.0-40); AST/SGOT 28 U/L (<34); BILIRUBIN,TOTAL 0.7 MG/DL (0.3-1.2); BLOOD UREA NITROGEN 20 MG/DL (9-23); CARBON DIOXIDE LEVEL 30 MMOL/L (20-31); CHLORIDE LEVEL 99 MMOL/L (98-107); CHOLESTEROL LEVEL 231 MG/DL (<200); CHOLESTEROL RISK RATIO 1.79 (<5); CREATININE FOR GFR 0.73 MG/DL (0.55-1.30); GLOMERULAR FILTRATION RATE > 60.0 (>39); GLUCOSE, FASTING 86 MG/DL (74-106); HDL CHOLESTEROL 128.9 MG/DL (>40); LDL CHOLESTEROL 92.7 MG/DL (<100); NON-HDL-C 102.1 MG/DL; POTASSIUM SERUM 4.2 MMOL/L (3.5-5.1); SODIUM LEVEL 137 MMOL/L (136-145); TOTAL 25(OH) VITAMIN D 42.2 NG/ML (20.0-100.0); TOTAL PROTEIN 6.9 G/DL (5.7-8.2); TRIGLYCERIDES LEVEL 47 MG/DL (<150)
[2022-06-20 17:30] LABS: HEMATOCRIT 41.5 % (36.0-47.0); HEMOGLOBIN 13.4 g/dl (12.0-15.5); MEAN CORPUSCULAR HEMOGLOBIN 31.2 pg (27.0-33.0); MEAN CORPUSCULAR HGB CONC 32.3 g/dl (32.0-36.5); MEAN CORPUSCULAR VOLUME 96.5 fl (80.0-96.0); PLATELET COUNT, AUTOMATED 279 10^3/uL (150-450)
[2022-06-20 17:54] LABS: HEMOGLOBIN A1c 5.3 % (4.0-6.0)
== END ==
LOC: M WUC 13:07
PROVIDERS: ATTEND Student in an Organized Health Care Education/Training Program
DX: I10 Essential (primary) hypertension (principal); E78.00 Pure hypercholesterolemia, unspecified; E55.9 Vitamin D deficiency, unspecified

== ENCOUNTER → 2022-07-28 | Outpatient (CLI) | payer BC ==
[~2022-07-28] MED LIST changes: +ARTIDRO4 OU; -POLYOPD OU
== END ==
LOC: M PLARAD 13:59
PROVIDERS: ATTEND Orthopaedic Surgery
DX: M47.814 Spondylosis without myelopathy or radiculopathy, thoracic region (principal); M51.16 Intervertebral disc disorders with radiculopathy, lumbar region; M48.061 Spinal stenosis, lumbar region without neurogenic claudication; M47.816 Spondylosis without myelopathy or radiculopathy, lumbar region

== ENCOUNTER → 2022-11-04 | Outpatient (REF) | payer BC | LOC: M WUC 17:51 | PROVIDERS: ATTEND Student in an Organized Health Care Education/Training Program | DX: R30.0 Dysuria (principal) ==

== ENCOUNTER 2023-06-24 19:25 | Observation (INO) | payer BC ==
[~2023-06-24] VITALS: Ht 165.1 cm; Wt 57.3 kg
[2023-06-24] MEDS: NS 500 ML IV SCH (01:02)
[2023-06-24 20:03] LABS: VENOUS BASE EXCESS -3.1 (-2.0-2.0); VENOUS HCO3 22.8 MMOL/L (23.0-27.0); VENOUS O2 SATURATION 76.2 % (60.0-80.0); VENOUS PARTIAL PRESSURE CO2 43.5 mmHg (38.0-50.0); VENOUS PARTIAL PRESSURE O2 44.5 mmHg (30.0-50.0); VENOUS PH 7.337 UNITS (7.330-7.430); VENOUS STANDARD HCO3 21.4 MMOL/L; VENOUS TOTAL CO2 24.1 MMOL/L (24.0-28.0)
[2023-06-24 20:09] LABS: HEMATOCRIT 42.9 % (36.0-47.0); HEMOGLOBIN 14.5 g/dl (12.0-15.5); MEAN CORPUSCULAR VOLUME 94.3 fl (80.0-96.0); RED BLOOD COUNT 4.55 10^6/uL (4.00-5.40); WHITE BLOOD COUNT 13.3 10^3/uL (4.0-10.0)
[2023-06-24 20:10] LABS: BASO # 0.1 10^3/uL (0.0-0.2); BASO % 0.6 % (0.0-1.0); EOS # 0.6 10^3/uL (0.0-0.5); EOS % 4.7 % (0.0-3.0); LYMPH # 0.9 10^3/uL (1.5-5.0); LYMPH % 6.9 % (24.0-44.0); MEAN CORPUSCULAR HEMOGLOBIN 31.9 pg (27.0-33.0); MEAN CORPUSCULAR HGB CONC 33.8 g/dl (32.0-36.5); MONO # 0.7 10^3/uL (0.0-0.8); NEUTROPHILS % 82.4 % (36.0-66.0); PLATELET COUNT, AUTOMATED 316 10^3/uL (150-450)
[2023-06-24] MEDS: IPRATROPIUM 0.5MG/ALBUTEROL 2.5MG INH SOL UD 3ML (DUONEB) NEB ONE ×2 (20:17→22:02)
[2023-06-24] MEDS: dexAMETHasone 20MG/5ML VIAL IV ONE (20:35)
[2023-06-24 20:43] LABS: ALBUMIN 4.3 G/DL (3.2-5.2); ALKALINE PHOSPHATASE 60 U/L (46-116); ALT/SGPT 33 U/L (7.0-40); AST/SGOT 47 U/L (<34); BILIRUBIN,DIRECT 0.1 MG/DL (<0.4); BILIRUBIN,TOTAL 0.6 MG/DL (0.3-1.2); BLOOD UREA NITROGEN 20 MG/DL (9-23); CALCIUM LEVEL 9.2 MG/DL (8.3-10.6); CARBON DIOXIDE LEVEL 26 MMOL/L (20-31); CHLORIDE LEVEL 97 MMOL/L (98-107); CK-MB VALUE MASS 1.8 NG/ML (<3.6); CPK CREATINE PHOSPHOKINASE 102 U/L (34-145); CREATININE FOR GFR 0.94 MG/DL (0.55-1.30); GLOMERULAR FILTRATION RATE > 60.0 (>39); GLUCOSE, FASTING 122 MG/DL (74-106); MB/CK RELATIVE INDEX 1.76 (< OR =4); POTASSIUM SERUM 4.8 MMOL/L (3.5-5.1); SODIUM LEVEL 133 MMOL/L (136-145); TOTAL PROTEIN 7.2 G/DL (5.7-8.2)
[2023-06-24 22:02] VITALS: O2SAT 98
[2023-06-24] MEDS ORDERED: ALBUTEROL SULFATE 2.5MG/0.5ML INH NEB SOLN NEB PRN (23:30)
[2023-06-24] MEDS ORDERED: ACETAMINOPHEN TAB 650MG DOSE (2X325MG) PO PRN (23:30)
[2023-06-25 00:03] VITALS: BP 152/66; TEMP 97.7; O2SAT 93
[2023-06-25] MEDS: IPRATROPIUM 0.5MG/ALBUTEROL 2.5MG INH SOL UD 3ML (DUONEB) NEB SCH ×2 (01:24→07:41)
[2023-06-25 05:28] VITALS: BP 135/60; TEMP 97.7; O2SAT 97
[2023-06-25 06:44] LABS: BLOOD UREA NITROGEN 17 MG/DL (9-23); CALCIUM LEVEL 9.3 MG/DL (8.3-10.6); CARBON DIOXIDE LEVEL 26 MMOL/L (20-31); CHLORIDE LEVEL 103 MMOL/L (98-107); CREATININE FOR GFR 0.65 MG/DL (0.55-1.30); GLOMERULAR FILTRATION RATE > 60.0 (>39); GLUCOSE, FASTING 167 MG/DL (74-106); SODIUM LEVEL 136 MMOL/L (136-145)
[2023-06-25] MEDS: SYMBICORT 160/4.5MCG INHALER 6GM INH SCH (07:41)
[2023-06-25] MEDS ORDERED: AZEL15GE2 TOP (07:58)
[2023-06-25] MEDS ORDERED: BENZ200C70 PO (07:58)
[2023-06-25] MEDS ORDERED: CEPH500T PO (07:58)
[2023-06-25] MEDS ORDERED: CHOL400T8 PO (07:58)
[2023-06-25] MEDS ORDERED: OYST1TAB PO (07:58)
[2023-06-25] MEDS ORDERED: CLOP75TA2 PO (07:58)
[2023-06-25] MEDS ORDERED: ASCO500C3 PO (07:58)
[2023-06-25] MEDS ORDERED: THERTAB52 PO (07:58)
[2023-06-25] MEDS ORDERED: HOME MED LIST COMPLETE! XX SCH (08:05)
[2023-06-25] MEDS: predniSONE 20 MG TAB PO SCH (08:16)
[2023-06-25] MEDS ORDERED: DOXYCYCLINE HYCLATE 100MG TABLET PO SCH (09:00)
[2023-06-25] MEDS: ENOXAPARIN 40MG/0.4ML SYRINGE (J1650 PER 10MG) SC SCH (09:41)
[2023-06-25] MEDS: LevoFLOXacin 750 MG TABLET PO SCH (11:09)
[2023-06-25] MEDS ORDERED: ALBU6.7H6 INH (11:23)
[2023-06-25] MEDS ORDERED: INCR1INH INH (11:23)
[2023-06-25 14:46] VITALS: BP 119/56; TEMP 97.3; O2SAT 94
[2023-06-26 05:25] VITALS: BP 117/48; TEMP 97.3; O2SAT 98
[2023-06-26] MEDS ORDERED: PRED20TA PO (10:23)
[2023-06-26] MEDS ORDERED: AZIT500T5 PO (10:23)
[2023-06-26] MEDS ORDERED: IPRA0.00 INH (10:23)
[2023-06-26] MEDS ORDERED: SYMB16INH INH (10:23)
== END 2023-06-26 12:30 | disposition home health service (06) ==
LOC: M ED 19:25 → INTOOBSV 23:13 → M ED INP 23:13 → ENRESERV 23:48 → M MS5PR 06-25 00:05
PROVIDERS: ADMIT Internal Medicine; ATTEND Student in an Organized Health Care Education/Training Program
DX: J44.1 Chronic obstructive pulmonary disease with (acute) exacerbation (principal); R06.02 Shortness of breath; I10 Essential (primary) hypertension; I25.10 Atherosclerotic heart disease of native coronary artery without angina pectoris; E78.5 Hyperlipidemia, unspecified; M81.0 Age-related osteoporosis without current pathological fracture; Z87.891 Personal history of nicotine dependence; Z88.2 Allergy status to sulfonamides; Z88.1 Allergy status to other antibiotic agents; Z88.0 Allergy status to penicillin; Z79.899 Other long term (current) drug therapy; Z79.02 Long term (current) use of antithrombotics/antiplatelets; Z83.6 Family history of other diseases of the respiratory system
CPT/HCPCS: 36415; 71045; 80048; 80076; 82550; 82553; 82803; 83605; 83880; 84484; 85025; 85379; 87040; 87486; 87581; 87633; 87798; 93005; 93041; 94640; 94760; 96372; 96374; 97116; 97161; 97165; 97530; 99285; J1100; J1650; J7512

== ENCOUNTER → 2023-10-07 | Outpatient (REF) | payer BC ==
[~2023-10-07] MED LIST changes: +ALBU6.7H6 INH; +ASCO500C3 PO; +AZEL15GE2 TOP; +AZIT500T5 PO; +BENZ200C70 PO; +CEPH500T PO; +CHOL400T8 PO; +CLOP75TA2 PO; +INCR1INH INH; +IPRA0.00 INH; +OYST1TAB PO; +PRED20TA PO; +SYMB16INH INH; +THERTAB52 PO
== END ==
LOC: M WUC 17:55
PROVIDERS: ATTEND Student in an Organized Health Care Education/Training Program
DX: R30.0 Dysuria (principal)

== ENCOUNTER → 2023-10-24 | Outpatient (REF) | payer BC | LOC: M LAB REF 19:55 | PROVIDERS: ATTEND Nurse Practitioner Family | DX: R30.0 Dysuria (principal) ==

== ENCOUNTER → 2023-11-07 | Outpatient (REF) | payer BC | LOC: M SFHCWAGY 12:54 | PROVIDERS: ATTEND Student in an Organized Health Care Education/Training Program | DX: Z87.440 Personal history of urinary (tract) infections (principal) ==

== ENCOUNTER → 2023-11-09 | Outpatient (REF) | payer BC | LOC: M SFHCPLAZ 16:45 | PROVIDERS: ATTEND Student in an Organized Health Care Education/Training Program | DX: N30.90 Cystitis, unspecified without hematuria (principal) ==

== ENCOUNTER → 2023-11-09 | Outpatient (REF) | payer BC | LOC: M SFHCPLAZ 18:46 | PROVIDERS: ATTEND Family Medicine | DX: Z53.9 Procedure and treatment not carried out, unspecified reason (principal) ==

== ENCOUNTER → 2023-11-20 | Outpatient (REF) | payer BC ==
[2023-11-20 15:28] LABS: APPEARANCE, URINE MANUAL CLOUDY (CLEAR); COLOR, URINE MANUAL ORANGE (YELLOW)
[2023-11-20 15:29] LABS: BILIRUBIN, URINE MANUAL OBSCURED (NEGATIVE); GLUCOSE, URINE (UA) MANUAL OBSCURED mg/dL (NEGATIVE); KETONE, URINE MANUAL OBSCURED mg/dL (NEGATIVE); LEUKOCYTE ESTERASE, URINE MAN OBSCURED (NEGATIVE); NITRITE, URINE MANUAL OBSCURED (NEGATIVE); PROTEIN, URINE MANUAL OBSCURED mg/dL (NEGATIVE); UROBILINOGEN, URINE MANUAL OBSCURED mg/dl (NORMAL)
[2023-11-20 15:34] LABS: BLOOD URINE MANUAL POSITIVE (NEGATIVE)
[2023-11-20 15:36] LABS: RBC, URINE 20-30 /hpf (0-3); SQUAMOUS EPITHELIAL CELL URINE SMALL AMOUNT /hpf (SMALL AMT); WBC, URINE 30-40 /hpf (0-3)
[2023-11-20 15:37] LABS: BACTERIA, URINE SMALL AMOUNT; HYALINE CAST, URINE NONE SEEN /lpf (0-1)
== END ==
LOC: M SFHCPLAZ 14:56
PROVIDERS: ATTEND Student in an Organized Health Care Education/Training Program
DX: R30.0 Dysuria (principal)

== ENCOUNTER → 2024-06-23 | Outpatient (CLI) | payer BC ==
[2024-06-23 13:00] LABS: HEMATOCRIT 42.2 % (36.0-47.0); HEMOGLOBIN 14.1 g/dl (12.0-15.5); MEAN CORPUSCULAR HEMOGLOBIN 30.9 pg (27.0-33.0); MEAN CORPUSCULAR HGB CONC 33.4 g/dl (32.0-36.5); MEAN CORPUSCULAR VOLUME 92.3 fl (80.0-96.0); PLATELET COUNT, AUTOMATED 283 10^3/uL (150-450); RED BLOOD COUNT 4.57 10^6/uL (4.00-5.40); WHITE BLOOD COUNT 6.4 10^3/uL (4.0-10.0)
[2024-06-23 13:21] LABS: HEMOGLOBIN A1c 5.6 % (4.0-6.0)
[2024-06-23 13:23] LABS: ALKALINE PHOSPHATASE 45 U/L (35-104); ALT/SGPT 33 U/L (7.0-40); AST/SGOT 28 U/L (<34); BILIRUBIN,TOTAL 0.6 MG/DL (0.3-1.2); BLOOD UREA NITROGEN 25 MG/DL (9-23); CALCIUM LEVEL 9.4 MG/DL (8.3-10.6); CARBON DIOXIDE LEVEL 29 MMOL/L (20-31); CHLORIDE LEVEL 102 MMOL/L (98-107); CHOLESTEROL LEVEL 224 MG/DL (<200); CHOLESTEROL RISK RATIO 1.67 (<5); CREATININE FOR GFR 0.81 MG/DL (0.55-1.30); GLOMERULAR FILTRATION RATE > 60.0 (>39); GLUCOSE, FASTING 84 MG/DL (74-106); HDL CHOLESTEROL 134.1 MG/DL (>40); LDL CHOLESTEROL 81.1 MG/DL (<100); NON-HDL-C 89.9 MG/DL; POTASSIUM SERUM 4.1 MMOL/L (3.5-5.1); SODIUM LEVEL 140 MMOL/L (136-145); TOTAL PROTEIN 6.9 G/DL (5.7-8.2); TRIGLYCERIDES LEVEL 44 MG/DL (<150)
[2024-06-23 13:25] LABS: TOTAL 25(OH) VITAMIN D 38.8 NG/ML (20.0-100.0)
== END ==
LOC: M WUC 10:58
PROVIDERS: ATTEND Family Medicine
DX: R73.01 Impaired fasting glucose (principal); I73.9 Peripheral vascular disease, unspecified; E78.00 Pure hypercholesterolemia, unspecified; E55.9 Vitamin D deficiency, unspecified

== ENCOUNTER → 2024-08-01 | Outpatient (CLI) | payer BC ==
[~2024-08-01] MED LIST changes: +PROHANCE 279.3MG/ML 5ML VIAL ONE
== END ==
LOC: M PLAIMG 08:13
PROVIDERS: ATTEND Family Medicine
DX: C50.012 Malignant neoplasm of nipple and areola, left female breast (principal); C50.811 Malignant neoplasm of overlapping sites of right female breast
CPT/HCPCS: A9576; C8908

== ENCOUNTER 2024-10-09 08:58 | Observation (INO) | payer BC ==
[~2024-10-09] VITALS: Ht 165.1 cm; Wt 54.4 kg
[~2024-10-09 08:58] MED LIST changes: +INCR1INH IN; +LIDOCAINE 1% MDV 20 ML VIAL As Ordered ONE; -PROHANCE 279.3MG/ML 5ML VIAL ONE
[2024-10-09] MEDS ORDERED: LR 1,000 ML IV SCH (09:20)
[2024-10-09] MEDS ORDERED: ONDANSETRON 4MG 2ML VIAL As Ordered ONE (11:33)
[2024-10-09] MEDS ORDERED: LIDOCAINE 2% 100 MG/5 ML SDV (FOR ANES.) As Ordered ONE (11:33)
[2024-10-09] MEDS ORDERED: ROCURONIUM BROMIDE 50MG/5ML VIAL As Ordered ONE (11:33)
[2024-10-09] MEDS ORDERED: dexAMETHasone 4 MG/ML 1 ML VIAL As Ordered ONE (11:33)
[2024-10-09] MEDS ORDERED: dexmedeTOMIDine (4 MCG/ML) 200 MCG/50 ML BTL As Ordered ONE (11:34)
[2024-10-09] MEDS ORDERED: MIDAZOLAM INJ 2 MG/2 ML VIAL As Ordered ONE (11:34)
[2024-10-09] MEDS ORDERED: PHENYLephrine 500MCG 5ML (100MCG/ML) SYRINGE As Ordered ONE (14:13)
[2024-10-09] MEDS: ceFAZolin SOD 2 GM IV ONCE IV ONE (14:18)
[2024-10-09] MEDS ORDERED: HYDROmorphone HCL 2 MG/ML 1 ML VIAL As Ordered ONE (15:08)
[2024-10-09] MEDS ORDERED: ACETAMINOPHEN 1000MG/100ML IV BAG As Ordered ONE (16:12)
[2024-10-09] MEDS ORDERED: SUGAMMADEX SODIUM 500 MG/5 ML VIAL As Ordered ONE (16:35)
[2024-10-09] MEDS: METHYLENE BLUE 0.5% (5 MG/ML) 10 ML AMP As Ordered ONE (17:19)
[2024-10-09] MEDS ORDERED: ONDANSETRON 4MG 2ML VIAL IV PRN ×2 (17:20→18:30)
[2024-10-09] MEDS ORDERED: HYDROMORPHONE HCL 0.5 MG/0.5 ML SYRINGE IV PRN (17:20)
[2024-10-09 18:35] VITALS: BP 118/70; TEMP 96.8; O2SAT 93
[2024-10-09 19:05] VITALS: BP 122/60; TEMP 97.6; O2SAT 93
[2024-10-09 19:35] VITALS: BP 118/58; TEMP 96.5; O2SAT 89
[2024-10-09 20:50] VITALS: BP 120/62; TEMP 96.5; O2SAT 90
[2024-10-09] MEDS: LR 1,000 ML IV SCH (21:46)
[2024-10-09] MEDS: ACETAMINOPHEN 500 MG TAB PO SCH (21:46)
[2024-10-09] MEDS: ceFAZolin SODIUM 2 GM in DEXTROSE 5% (D5W) ADV/MINI-BAG 50 ML IV SCH (21:47)
[2024-10-09 21:50] VITALS: BP 118/56; TEMP 97.2; O2SAT 97
[2024-10-09 22:50] VITALS: BP 122/60; TEMP 96.5; O2SAT 94
[2024-10-10] VITALS: BP 106/54; TEMP 97.6; O2SAT 97
[2024-10-10 04:00] VITALS: BP 112/60; TEMP 96.8; O2SAT 93
[2024-10-10] MEDS: LR 1,000 ML IV SCH (05:42)
[2024-10-10] MEDS ORDERED: HOME MED LIST COMPLETE! XX SCH (07:50)
[2024-10-10 08:00] VITALS: BP 108/58; TEMP 97.2; O2SAT 96
[2024-10-10] MEDS ORDERED: OXYC-517 PO (09:27)
== END 2024-10-10 12:20 | disposition home or self-care (01) ==
LOC: M SDC 08:58 → M RR INP 08:59 → M MS5PR 18:30
PROVIDERS: ADMIT Surgery; ATTEND Surgery
DX: D05.01 Lobular carcinoma in situ of right breast (principal); D05.12 Intraductal carcinoma in situ of left breast; I10 Essential (primary) hypertension; I73.9 Peripheral vascular disease, unspecified; M19.90 Unspecified osteoarthritis, unspecified site; M54.9 Dorsalgia, unspecified; R35.0 Frequency of micturition; Z88.0 Allergy status to penicillin; Z88.1 Allergy status to other antibiotic agents; Z88.2 Allergy status to sulfonamides; Z79.899 Other long term (current) drug therapy; Z79.02 Long term (current) use of antithrombotics/antiplatelets
CPT/HCPCS: 19303; 38525; 38792; 88307; 96374; 96376; A9520; J0131; J0690; J1100; J1171; J2250; J2371; J2405; J3010

== ENCOUNTER → 2024-10-20 | Outpatient (CLI) | payer BC ==
[~2024-10-20] MED LIST changes: -LIDOCAINE 1% MDV 20 ML VIAL As Ordered ONE; +OXYC-517 PO
== END ==
LOC: M RAD 14:20
PROVIDERS: ATTEND Surgery
DX: M79.605 Pain in left leg (principal)

== ENCOUNTER → 2024-11-10 | Outpatient (CLI) | payer BC ==
[~2024-11-10] MED LIST changes: +CLOP75TA2
== END ==
LOC: M PLARAD 12:00
PROVIDERS: ATTEND Specialist
DX: C50.911 Malignant neoplasm of unspecified site of right female breast (principal); C50.912 Malignant neoplasm of unspecified site of left female breast
CPT/HCPCS: 78815; A9552

== ENCOUNTER → 2024-12-24 | Outpatient (CLI) | payer BC ==
[~2024-12-24] MED LIST changes: +LETR2.5T2 PO
== END ==
LOC: M WHC 11:51
PROVIDERS: ATTEND Specialist
DX: Z12.31 Encounter for screening mammogram for malignant neoplasm of breast (principal)